=== PATIENT | male | born 1940 | race Caucasian/White ===

== ENCOUNTER 2024-06-01 07:50 | Emergency (ER) | payer MEDICARE, OTHER ==
[2024-06-01 08:24] LABS: BASOPHILS ABSOLUTE AUTO 0.05 K/uL (0.00-0.20); BASOPHILS PERCENT AUTO 0.4 % (0.0-2.0); EOSINOPHILS ABSOLUTE AUTO 0.27 K/uL (0.00-0.50); EOSINOPHILS PERCENT AUTO 2.2 % (0.0-5.0); HEMATOCRIT 41.2 % (39.0-49.0); HEMOGLOBIN 13.4 g/dL (13.1-16.8); IMMATURE GRAN ABSOLUTE AUTO 0.07 10^3/uL (0.00-0.50); IMMATURE GRAN PERCENT AUTO 0.6 % (0.0-5.0); LYMPHOCYTES ABSOLUTE AUTO 1.17 K/uL (0.50-3.50); LYMPHOCYTES PERCENT AUTO 9.5 % (10.0-50.0); MEAN CORPUSCULAR HEMOGLOBIN 33.1 pg (28.2-33.3); MEAN CORPUSCULAR HGB CONC 32.5 g/dL (31.7-36.0); MEAN CORPUSCULAR VOLUME 101.7 fL (84.0-98.0); MONOCYTES ABSOLUTE AUTO 1.07 K/uL (0.00-1.00); MONOCYTES PERCENT AUTO 8.6 % (2.0-14.0); NEUTROPHILS ABSOLUTE AUTO 9.75 K/uL (1.40-7.00); NEUTROPHILS PERCENT AUTO 78.7 % (45.0-80.0); PLATELET COUNT,PLT 353 K/uL (150-350); RED BLOOD CELL COUNT 4.05 M/uL (4.33-5.41); RED CELL DISTRIBUTION WIDTH 12.4 % (11.2-14.1); WHITE BLOOD CELL COUNT,WBC 12.4 K/uL (4.0-10.2)
[2024-06-01 08:39] LABS: ALBUMIN 3.5 g/dL (3.4-5.0); ANION GAP 7.5 meq/L (7-15); BILIRUBIN TOTAL 0.5 mg/dL (0.2-1.0); CALCIUM 9.6 mg/dL (8.5-10.1); CARBON DIOXIDE,CO2 30.5 mmol/L (21.0-32.0); CREATININE 1.04 mg/dL (0.51-1.17); EST CRCL DRUG DOSING (CG) 44.83 mL/min; POTASSIUM,K 4.3 mmol/L (3.5-5.1); PROTEIN TOTAL,TP 8.3 g/dL (6.4-8.2)
[2024-06-01] MEDS: Ondansetron 4 MG/2 ML SDV IVPUSH ONE (08:54)
[2024-06-01] MEDS: Morphine 2 MG/ML SYRINGE IVPUSH ONE ×2 (08:54→10:12)
[2024-06-01 08:59] LABS: APPEARANCE,URINE CLEAR; BILIRUBIN,URINE NEGATIVE (NEGATIVE); COLOR,URINE YELLOW; GLUCOSE,URINE NEGATIVE (NEGATIVE); KETONES,URINE NEGATIVE (NEGATIVE); LEUKOCYTE ESTERASE,URINE NEGATIVE (NEGATIVE); NITRITE,URINE NEGATIVE (NEGATIVE); OCCULT BLOOD,URINE TRACE-INTACT (NEGATIVE); PH,URINE 5.5 (5.0-9.0); PROTEIN,URINE NEGATIVE (NEGATIVE); UROBILINOGEN,URINE 0.2 E.U./dL (0.2-1.0)
[2024-06-01 09:07] LABS: BACTERIA,URINE RARE /HPF (NONE TO FEW); EPITHELIAL CELLS,URINE RARE /LPF; MUCUS,URINE RARE /LPF (NEGATIVE); RBC,URINE 0-5 /HPF; WBC,URINE 0-5 /HPF
[2024-06-01] MEDS: Iopamidol 612 MG/ML 100 ML Bottle IVPUSH STA (09:07)
[2024-06-01] MEDS: Sodium Chloride 0.9% 10 ML Syringe FLUSH PRN (09:10)
[2024-06-01] MEDS: Lactulose Soln 10 GM/15 ML 30 ML UD Cup PO ONE (10:13)
== END 2024-06-01 10:45 ==
LOC: SUPCPDRO 07:50 → LL.ED 07:50
DX: R10.31 Right lower quadrant pain (principal); I11.0 Hypertensive heart disease with heart failure; I50.9 Heart failure, unspecified; J44.9 Chronic obstructive pulmonary disease, unspecified; E78.00 Pure hypercholesterolemia, unspecified; K21.9 Gastro-esophageal reflux disease without esophagitis; E66.9 Obesity, unspecified; E11.9 Type 2 diabetes mellitus without complications; Z79.899 Other long term (current) drug therapy; Z79.51 Long term (current) use of inhaled steroids; Z79.4 Long term (current) use of insulin; Z79.84 Long term (current) use of oral hypoglycemic drugs; Z79.1 Long term (current) use of non-steroidal anti-inflammatories (NSAID); Z88.8 Allergy status to other drugs, medicaments and biological substances
CPT/HCPCS: 36415; 74022; 74177; 80053; 81001; 82150; 83605; 85025; 87426-QW; 96374; 96375; 96376; 99285-25; A9270-GY; J2270; J2405; J3490; Q9967

== ENCOUNTER 2024-06-04 11:39 | Emergency (ER) | payer MEDICARE, OTHER ==
[2024-06-04 11:54] LABS: BASOPHILS ABSOLUTE AUTO 0.04 K/uL (0.00-0.20); BASOPHILS PERCENT AUTO 0.3 % (0.0-2.0); EOSINOPHILS ABSOLUTE AUTO 0.14 K/uL (0.00-0.50); EOSINOPHILS PERCENT AUTO 1.1 % (0.0-5.0); HEMATOCRIT 36.5 % (39.0-49.0); HEMOGLOBIN 12.1 g/dL (13.1-16.8); IMMATURE GRAN ABSOLUTE AUTO 0.07 10^3/uL (0.00-0.50); IMMATURE GRAN PERCENT AUTO 0.6 % (0.0-5.0); LYMPHOCYTES ABSOLUTE AUTO 0.68 K/uL (0.50-3.50); LYMPHOCYTES PERCENT AUTO 5.4 % (10.0-50.0); MEAN CORPUSCULAR HEMOGLOBIN 33.1 pg (28.2-33.3); MEAN CORPUSCULAR HGB CONC 33.2 g/dL (31.7-36.0); MEAN CORPUSCULAR VOLUME 99.7 fL (84.0-98.0); MONOCYTES ABSOLUTE AUTO 1.14 K/uL (0.00-1.00); MONOCYTES PERCENT AUTO 9.1 % (2.0-14.0); NEUTROPHILS ABSOLUTE AUTO 10.43 K/uL (1.40-7.00); NEUTROPHILS PERCENT AUTO 83.5 % (45.0-80.0); PLATELET COUNT,PLT 356 K/uL (150-350); RED BLOOD CELL COUNT 3.66 M/uL (4.33-5.41); RED CELL DISTRIBUTION WIDTH 12.2 % (11.2-14.1); WHITE BLOOD CELL COUNT,WBC 12.5 K/uL (4.0-10.2)
[2024-06-04] MEDS ORDERED: Sodium Chloride 0.9% 10 ML Syringe FLUSH PRN (12:11)
[2024-06-04 12:14] LABS: ALANINE AMINOTRANSFERASE,ALT 56 U/L (12-78); ALKALINE PHOSPHATASE 217 IU/L (46-116); ANION GAP 10.9 meq/L (7-15); ASPARTATE AMNIOTRANSFERASE,AST 48 U/L (15-37); BILIRUBIN TOTAL 0.6 mg/dL (0.2-1.0); BLOOD UREA NITROGEN,BUN 27 mg/dL (7-18); CALCIUM 9.4 mg/dL (8.5-10.1); CARBON DIOXIDE,CO2 27.1 mmol/L (21.0-32.0); CHLORIDE,CL 100 mmol/L (98-107); CREATININE 1.07 mg/dL (0.51-1.17); ESTIMATED GFR 70 mL/min (>=60); GLUCOSE RANDOM 341 mg/dL (70-99); LIPASE 15 U/L (16-77); POTASSIUM,K 3.9 mmol/L (3.5-5.1); PROTEIN TOTAL,TP 7.8 g/dL (6.4-8.2); SODIUM,NA 138 mmol/L (136-145)
[2024-06-04] MEDS: Iopamidol 612 MG/ML 100 ML Bottle IVPUSH ONE (12:18)
== END 2024-06-04 13:40 | disposition home or self-care (01) ==
LOC: LL.ED 11:39
DX: R10.9 Unspecified abdominal pain (principal); I11.0 Hypertensive heart disease with heart failure; I50.9 Heart failure, unspecified; J44.9 Chronic obstructive pulmonary disease, unspecified; K21.9 Gastro-esophageal reflux disease without esophagitis; E78.00 Pure hypercholesterolemia, unspecified; E66.9 Obesity, unspecified; E11.9 Type 2 diabetes mellitus without complications; Z88.8 Allergy status to other drugs, medicaments and biological substances; Z79.4 Long term (current) use of insulin; Z79.899 Other long term (current) drug therapy
CPT/HCPCS: 36415; 74177; 80053; 83690; 84484; 85025; 99284; Q9967